=== PATIENT | female | born 1970 | race Hispanic/Latino ===

== ENCOUNTER 2018-08-17 14:46 | Emergency (ER) | payer SELFPAY ==
[2018-08-17 14:53] VITALS: BP 116/81
--- NOTE | 2018-08-17 15:44 | Emergency Department Report ---
ED Headache HPI - General Chief Complaint: Upper Respiratory Infection Stated Complaint: FLU LIKE Time Seen by Provider: 08/17/18 15:35 Source: patient, family Exam Limitations: no limitations - History of Present Illness Initial Comments: This is 48-year-old female here appears very anxious and crying reports that she is having sinus congestion and pain, nasal congestion runny nose, cough and is triggered her migraine headache. She she took Imitrex but it did not help. Pain 7 out of 10 located frontally. Denies any eye pain but reports that she has sensitivity to light. She reports nausea but able to tolerate water. She reports weakness. Denies any shortness of breath or chest pain. Denies any back pain. Denies any fever or chills or nausea or abdominal pain. Nose any head injury. He also says she took nitroglycerin Chavo which did not help. Estimated by lights and no alleviating factors Timing/Duration: constant, increasing, other (6 days) Quality: severe, achy, constant, pressure, throbbing Head Injury Location: frontal Recent Head Trauma: chronic headaches Modifying Factors: improves with: exposure to light Associated Symptoms: facial pain, nausea/vomiting, nasal congestion, nasal drainage, sinus infection, vision changes (light sensitivity), weakness. denies: confusion, fatigue, fever/chills, flushing, loss of consciousness, numbness in legs/feet, rash, seizures, stiff neck Allergies/Adverse Reactions: Allergies latex Allergy (Verified 08/17/18 14:51) Hives metoclopramide [From Reglan] Allergy (Verified 08/17/18 14:51) Hives morphine Allergy (Verified 08/17/18 14:51) Hives Home Medications: Ambulatory Orders Acetamin/Codeine 120-12Mg/5 ml [Tylenol/Codeine] 5 ml PO Q12H PRN #50 ml 08/17/18 Amoxicillin/K Clav Tab [Augmentin 875MG TAB] 1 tab PO Q12HR #20 tab 08/17/18 Cetirizine HCl [ZyrTEC] 10 mg PO QAM 14 Days #14 capsule 08/17/18 Fluticasone [Flonase] 1 spray NS QDAY 14 Days #1 bottle 08/17/18 Ibuprofen [Motrin] 600 mg PO Q8H PRN #12 tablet 08/17/18 Ondansetron [Zofran ODT TAB] 8 mg PO Q8HR PRN #12 tab.rapdis 08/17/18 predniSONE [Prednisone] 10 mg PO QAM 6 Days #1 tab.ds.pk 08/17/18 ED Review of Systems ROS: Stated complaint: FLU LIKE Other details as noted in HPI Constitutional: denies: chills, fever Eyes: vision change (sensitivity to light). denies: eye pain ENT: congestion, other (sinus pain). denies: ear pain, throat pain, dental pain, hearing loss, epistaxis Respiratory: cough. denies: shortness of breath, SOB with exertion, SOB at rest, stridor, wheezing Cardiovascular: denies: chest pain, palpitations, dyspnea on exertion, edema, syncope Gastrointestinal: nausea, vomiting. denies: abdominal pain, diarrhea, constipation, hematemesis, hematochezia Genitourinary: denies: dysuria Musculoskeletal: denies: back pain, joint swelling, arthralgia, myalgia Skin: denies: rash Neurological: headache, weakness. denies: numbness, paresthesias, confusion, abnormal gait, vertigo Psychiatric: anxiety ED Past Medical Hx - Past Medical History Previous Medical History?: Yes Hx Headaches / Migraines: Yes - Surgical History Past Surgical History?: Yes Hx Cholecystectomy: Yes Hx Breast Surgery: Yes (augmentation) - Family History Family history: no significant - Social History Smoking Status: Never Smoker Substance Use Type: None - Medications Home Medications: Home Medications Medication Instructions Recorded Confirmed Last Taken Type Acetamin/Codeine 120-12Mg/5 ml 5 ml PO Q12H PRN #50 ml 08/17/18 Unknown Rx [Tylenol/Codeine] Amoxicillin/K Clav Tab [Augmentin 1 tab PO Q12HR #20 tab 08/17/18 Unknown Rx 875MG TAB] Cetirizine HCl [ZyrTEC] 10 mg PO QAM 14 Days #14 capsule 08/17/18 Unknown Rx Fluticasone [Flonase] 1 spray NS QDAY 14 Days #1 bottle 08/17/18 Unknown Rx Ibuprofen [Motrin] 600 mg PO Q8H PRN #12 tablet 08/17/18 Unknown Rx Ondansetron [Zofran ODT TAB] 8 mg PO Q8HR PRN #12 tab.rapdis 08/17/18 Unknown Rx predniSONE [Prednisone] 10 mg PO QAM 6 Days #1 tab.ds.pk 08/17/18 Unknown Rx ED Physical Exam - General Limitations: No Limitations General appearance: alert, in no apparent distress - Head Head exam: Present: atraumatic, normocephalic, normal inspection, other (normal exam) - Eye Eye exam: Present: normal appearance, PERRL, EOMI. Absent: nystagmus Pupils: Present: normal accommodation - ENT ENT exam: Present: normal orophraynx, mucous membranes moist, normal external ear exam, other (mucosa congested with erythema and clear drainage. Maxillary sinus tenderness to palpate). Absent: normal exam, TM's normal bilaterally (lateral TM congested without erythema) - Neck Neck exam: Present: normal inspection, full ROM, other (no C-spine tenderness). Absent: tenderness, meningismus, lymphadenopathy - Respiratory Respiratory exam: Present: normal lung sounds bilaterally, other (dry cough). Absent: respiratory distress, chest wall tenderness - Cardiovascular Cardiovascular Exam: Present: regular rate, normal rhythm, normal heart sounds - GI/Abdominal GI/Abdominal exam: Present: soft, normal bowel sounds. Absent: tenderness - Extremities Exam Extremities exam: Present: normal inspection, full ROM, normal capillary refill, other (No cce. + 2 pulses in all extremities, no neurovascular compromise). Absent: tenderness, pedal edema, joint swelling, calf tenderness - Back Exam Back exam: Present: normal inspection, full ROM, other (ambulates without any difficulties). Absent: tenderness, CVA tenderness (R), CVA tenderness (L), muscle spasm, paraspinal tenderness, vertebral tenderness, rash noted - Neurological Exam Neurological exam: Present: alert, oriented X3, normal gait, reflexes normal, other (No focal deficit). Absent: motor sensory deficit - Psychiatric Psychiatric exam: Present: anxious - Skin Skin exam: Present: warm, dry, intact, normal color. Absent: rash ED Course Vital Signs 08/17/18 08/17/18 08/17/18 14:51 16:21 16:22 Temperature 98.1 F Pulse Rate 67 Respiratory 18 18 18 Rate Blood Pressure 116/81 O2 Sat by Pulse 100 Oximetry - Reevaluation(s) Reevaluation #1: 08/17/18 16:45 Patient given IV Zofran, Decadron, Toradol tablet headache and nausea which she says her nausea is better. She was given Augmentin to start this for sinus infection. Also given Benadryl 50 mg IV. Patient able to tolerate 2 cups of ice water in the emergency room without any nausea or vomiting Reevaluation #2: 08/17/18 17:01 Reevaluation patient is rocking back and forth and said that she still has headache at 4/10 and she just needs something to calm her down. I told her that once the antibiotic kicks in and medication for sinus infection that headache should resolve. Patient given 1 mg of Ativan IV for anxiety. ED Medical Decision Making - Medical Decision Making This is a 48-year-old female here reports headache, nausea vomiting and flulike symptoms. She is not running any fever. Physical findings for normal neurological system and patient has sinus infection with headache. She was treated with Decadron, Toradol, Benadryl and Zofran IV. She was started on Augmentin 875 mg start sinus infection and later given Ativan 1 mg IV for anxiety. I discussed the patient that she needs to follow discharge instruction given on sinusitis infection and to take medication as prescribed and she should start feeling better couple days. She voiced understanding and and was able to tolerate by mouth fluids in the emergency room without any nausea or vomiting. I discussed the patient that she needs to follow-up with her primary care doctor in 2-3 days but if her symptoms worsen to go as the closest emergency room. She does not have a neurologist I told her that she needs to follow up with neurologists and 2-3 days. Patient discharged home in stable condition with her family with prescription for Prednisone dose pack,Augmentin, Zyrtec, Flonase, Tylenol with codeine cough syrup, Motrin. Pain has decreased down to 4/10 and nausea is relieved and she is much calmer. - Differential Diagnosis migraine headache VS sinus headache, sinus infection, viral syndrome Critical care attestation.: If time is entered above; I have spent that time in minutes in the direct care of this critically ill patient, excluding procedure time. ED Disposition Clinical Impression: Acute bacterial sinusitis, Cough in adult patient, Nausea alone, Anxiety Headache Qualifiers: Headache type: unspecified Headache chronicity pattern: acute headache Intractability: not intractable Qualified Code(s): R51 - Headache Disposition: DC-01 TO HOME OR SELFCARE Is pt being admited?: No Does the pt Need Aspirin: No Condition: Stable Instructions: Acute Headache (ED), Acute Bacterial Rhinosinusitis (ED), Acute Cough (ED), Acute Nausea and Vomiting (ED) Additional Instructions: Please read discharge instructions on sinus infection on headache. See neurologist for follow-up in 2-3 days and also follow up with her primary care physician in 2-3 days and if he do not have a primary care physician follow-up at [facility] If symptoms worsen, return to the emergency room Take medication as prescribed please not take Tylenol with Codeine for cough if you driving or operating heavy machinery as this medication causes drowsiness Referrals: GAEL HANCOCK MD [Primary Care Provider] - 2-3 Days [facility] [Outside] - 2-3 Days JC ANGELES MD [Staff Physician] - 2-3 Days
[2018-08-17] MEDS ORDERED: DECADRON IV STA (15:45)
[2018-08-17] MEDS ORDERED: ZOFRAN IV ONE (15:45)
[2018-08-17] MEDS ORDERED: TORADOL IVP ONE (15:45)
[2018-08-17] MEDS ORDERED: AUGMENTIN 875 MG PO ONE (15:45)
[2018-08-17] MEDS ORDERED: BENADRYL IV ONE (15:45)
[2018-08-17] MEDS ORDERED: TYLENOL/CODEINE PO ONE (15:46)
[2018-08-17] MEDS ORDERED: TORADOL ONE (16:02)
[2018-08-17] MEDS ORDERED: DECADRON ONE (16:03)
[2018-08-17] MEDS ORDERED: ATIVAN IV ONE (16:53)
[2018-08-17] MEDS ORDERED: ALUM-MAG HYDROX-SIMETH 200-200-20MG/5ML PO ONE (17:17)
[2018-08-17] MEDS ORDERED: ALUM-MAG HYDROX-SIMETH 200-200-20MG/5ML ONE (17:18)
== END 2018-08-17 17:30 | disposition home or self-care (01) ==
LOC: ED 14:46
DX: J01.90 Acute sinusitis, unspecified (principal); R11.2 Nausea with vomiting, unspecified; F41.9 Anxiety disorder, unspecified; Z91.040 Latex allergy status; Z88.5 Allergy status to narcotic agent; Z90.49 Acquired absence of other specified parts of digestive tract
CPT/HCPCS: 96374; 96375; 99283; J1100; J1200; J1885; J2060; J2405